=== PATIENT | female | born 1975 | race African-American/Black ===

== ENCOUNTER 2017-09-12 12:01 | Day surgery (SDC) | payer BC, OTHER ==
[~2017-09-12] VITALS: Ht 170.2 cm; Wt 99.8 kg
[~2017-09-12 12:01] MED LIST: BUPIVACAINE-EPI 0.25%-1:200000 MPF 30 ML VIAL. IJ ONE; DEXAMETHASONE SOD PHOS 20 MG/5 ML VIAL. ONE; ESTROGENS, CONJ VAGINAL CREAM 30GM TUBE. ONE; FAMOTIDINE 20 MG/2 ML VIAL ONE; LIDOCAINE 1%/EPI 1:100,000 20 ML VIAL. ONE; LIDOCAINE 2% PF Vial for OR 5 ML VIAL. ONE; ONDANSETRON PF 4 MG/2 ML VIAL. ONE; PROPOFOL 20 ML IV ONE; SURGICEL HEMOSTAT 4X8 EACH. ONE; fentaNYL PF VIAL 100 MCG/2 ML VIAL ONE
[2017-09-12] MEDS ORDERED: fentaNYL PF VIAL 100 MCG/2 ML VIAL IV PRN ×2 (12:30)
[2017-09-12] MEDS ORDERED: LIDOCAINE 1% PF 2 ML VIAL. ID PRN (12:30)
[2017-09-12] MEDS ORDERED: HYDROmorphone 2 MG/ML VIAL IV PRN (12:30)
[2017-09-12] MEDS ORDERED: ONDANSETRON PF 4 MG/2 ML VIAL. IV PRN (12:30)
[2017-09-12] MEDS ORDERED: MORPHINE SULFATE 2 MG/ML DISP.SYRIN. IV PRN (12:30)
[2017-09-12] MEDS ORDERED: PROCHLORPERAZINE 10 MG/2 ML VIAL. IV PRN (12:30)
[2017-09-12] MEDS ORDERED: MIDAZOLAM HCL/PF 2 MG/2 ML VIAL. ONE (12:48)
[2017-09-12] MEDS: IV RINGERS,LACTATED 1000ML 1,000 ML IV SCH ×2 (13:17→16:39)
[2017-09-12] MEDS ORDERED: ESMOLOL 100 MG/10 ML VIAL. IV ONE (13:30)
[2017-09-12] MEDS ORDERED: fentaNYL PF VIAL 100 MCG/2 ML VIAL ONE ×2 (13:36→14:40)
[2017-09-12] MEDS ORDERED: DESFLURANE 61 TO 120 MINUTES IH ONE (14:06)
[2017-09-12] MEDS ORDERED: ROCURONIUM 100 MG/10 ML VIAL. ONE (14:21)
[2017-09-12] MEDS ORDERED: KETOROLAC 30 MG/ML INJ FOR OR. INJ ONE (14:40)
[2017-09-12] MEDS ORDERED: NEOSTIGMINE METHYLSULFATE 5 MG/5 ML SYRINGE. ONE (14:40)
[2017-09-12] MEDS ORDERED: GLYCOPYRROLATE 1 MG/5 ML VIAL. ONE (14:40)
--- NOTE | 2017-09-12 15:04 | PDOC ---
BRIEF OPERATIVE NOTE Pre-Op Diagnosis Complex Ovarian cyst Post-Op Diagnosis Bilateral ovarian cysts with pelvic and abd wall adhesions Procedure Performed [facility] BSO Surgeon Dr. Monk Anesthesia Type: General Blood Loss 50 ml Specimens Obtained bilateral fallopian tubes and ovaries Findings bilateral ovarian cysts, nml fallopian tubes ramandeep., and pelvic and abd wall adhesions Complications none FERNANDO MONK Jr, MD Sep 12, 2017 15:04
--- NOTE | 2017-09-12 15:04 | DISCH ---
DISCHARGE INSTRUCTIONS Condition on Discharge Condition on Discharge: Stable Activity After Discharge Activity Instructions for Disc: Activity as tolerated Lifting Instructions after Dis: No heavy lifting Driving Instructions after Dis: Do not drive today Diet after Discharge Diet after Discharge: Regular Contacting the DRLissette after DC Call your doctor for: Concerns you may have Follow-Up Follow up with: Dr. Monk in 1 week. FERNANDO MONK Jr, MD Sep 12, 2017 15:04
--- NOTE | 2017-09-12 15:29 | OP ---
DATE OF SURGERY: 09/12/2017 PREOPERATIVE DIAGNOSIS: Complex ovarian cyst. POSTOPERATIVE DIAGNOSES: Bilateral ovarian cysts with pelvic and abdominal wall adhesions. PROCEDURE: Laparoscopic BSO. SURGEON: Reinaldo Monk MD. ANESTHESIA: GETA. ESTIMATED BLOOD LOSS: 50 mL. COMPLICATIONS: None. FINDINGS: Bilateral ovarian cysts. Normal fallopian tubes bilaterally. Pelvic and abdominal wall adhesions. SUMMARY: A 42-year-old female with pelvic pain, abdominal bloating, weight gain and complex ovarian cysts per CT and pelvic sonogram. The patient was counseled on laparoscopic BSO risks, benefits and expectations and voiced clear understanding to proceed. DESCRIPTION OF PROCEDURE: The patient was taken to surgery suite and placed in dorsal lithotomy position. She was prepped with Betadine for vaginal prep and ChloraPrep for abdominal prep. After adequate anesthesia, a moist sponge stick was placed vaginally. Attention was then placed on abdomen. Small transverse skin incision was made just below the umbilicus with a scalpel. The Veress needle was then placed through the infraumbilical incision site. The abdomen was allowed to insufflate up to 1.5 liters CO2 gas. The Veress needle was then removed, 5 mm trocar was placed. Scope was positioned. There were multiple abdominal wall adhesions, pelvic corbett adhesions as well. Initially, the left fallopian tube and ovary was seen with multiple cysts. The right fallopian tube and ovary was not seen at this time. Two additional incisions were made in the left lower quadrant, which an 11 mm trocar and a 5 mm trocar was placed. With the aid of graspers and EnSeal device, the left fallopian tube was dissected free of the left pelvic sidewall. The left infundibulopelvic ligament was coagulated and dissected. Further dissection, the right fallopian tube and ovary was then visualized. The left fallopian tube and ovary was then removed with the aid of an Endobag and sent for a fresh section evaluation by the pathologist, which revealed simple cyst. No evidence of malignancy. The same process took place with the right fallopian tube and ovary, which was dissected meticulously from the pelvic sidewall and bowel. The ureters were visualized and functioning properly. The appendix was normal in appearance. The right fallopian tube was also removed via the Endobag. The areas were hemostatic. This was verified with suction irrigation. A small amount of normal saline was left in the posterior cul-de-sac. The trocars were then removed under direct visualization. The abdomen was allowed to deflate as much as possible. The 11 mm trocar site was closed at the fascial layer using 2-0 Vicryl suture in a [id number] manner. The three skin incisions were closed in subcuticular manner using 4-0 Vicryl suture. 0.25% Marcaine with epinephrine was injected at each incision site. A moist sponge stick was then removed. The patient tolerated the procedure well and was taken to recovery room in stable condition. Sponge and needle count correct x 3. REINALDO MONK MD DR: RADHA/rae JOB#: [id number] / [id number]
[2017-09-12] MEDS ORDERED: oxyCODONE/APAP 5/325 1 TAB TABLET PO ONE (15:30)
[2017-09-12] MEDS ORDERED: OXYC-323 PO (15:32)
[2017-09-12] MEDS ORDERED: oxyCODONE/APAP 5/325 1 TAB TABLET PO PRN (15:45)
[2017-09-12 17:32] VITALS: BP 161/99
--- NOTE | 2017-09-16 15:04 | PATHOLOGY ---
PATHOLOGY REPORT * * * * * * * * FINAL DIAGNOSIS: A. Fallopian tube and ovary, left salpingo-oophorectomy: - Tubo-ovarian adhesions with mesothelial inclusion cyst - Cystic follicles and luteal cyst of ovary. B. Fallopian tube and ovary, right salpingo-oophorectomy: - Tubo-ovarian adhesions. - Paratubal cysts. - Several small cystic follicles of ovary. COMMENT: There is no evidence of malignancy. (JPM:mml; 09/16/2017) REPORT ELECTRONICALLY SIGNED BY: Lei Smith M.D. DATE/TIME: 09/16/2017 15:03 * * * * * * * * GROSS PATHOLOGY: A. The specimen is received fresh, labeled "Left tube and ovary". This consists of a short slightly torturous segment of fallopian tube with attached ovary. The fallopian tube measures approximately 3.5 cm in length and is up to 0.6 cm in width. The serosa is pink to dark purple and focally roughened. The attached pink martin ovary measures approximately 3.3 x 3.0 x 1.9 cm. One broad surface is relatively smooth. The opposite broad surface is roughened and has adhesions. The ovary is partially torn revealing a pink brown granular base. There appears to be a collapsed thin-walled cyst having a smooth lining between the ovary and fallopian tube. This measures 1.7 cm. The ovary is bivalved. The cut surface is pale pak to martin and edematous. There is a partial collapsed cyst within the ovary measuring up to 1.6 cm. There is a small yellow luteum measuring up to 0.9 cm. Sections are submitted as follows: A1- fallopian tube. A2- thin-walled paraovarian cyst. A3, A4- sections of ovary. (JPM:mml; 09/12/2017) B. The specimen is received fresh, labeled "Right tube and ovary". The specimen is received in two parts. The first consists of an elongate segment of pink red membranous tissue measuring up to 3.5 cm in length and 1.2 cm in width. There appears to be a thin-walled cyst embedded within the membranous tissue measuring up to 0.8 cm. The second segment consists of an irregular segment of pink martin to purple pak tissue which largely appears to consist of ovarian tissue. This segment measures up to 4.5 x 3.5 x 0.9 cm. There is focal brown black cautery change. One broad surface is relatively smooth and partially cerebriform and consistent with ovarian surface. The opposite broad surface is roughened and focally hemorrhagic. There are no distinct masses identified. Once again, there appears to be a small cystic segment of tissue adhered to one end of the ovary measuring up to 0.8 cm. No frozen section is performed. (JPM:pit; 09/12/2017) Sections are submitted as follows: B1- small segment of tissue containing small cyst and possible tubal fimbrae. B2-B4- sections of ovary and possible segment of fallopian tube. (JPM:mml; 09/12/2017) INTRAOPERATIVE CONSULTATION Gross Consultation: A. Fallopian tube and ovary, left salpingoopherectomy: -Benign cyst of ovary with adhesions and thin walled paraovarian cyst. The results are reported to Dr. Monk in the operating room. Gross consultation performed [place] [address] INITIAL CPT CODE(S): A; 10659, 66379 B; 69141 Professional services [place] [address] Technical services performed by [facility] at [address] [place] [address], [address], [place] [address]. SPECIMEN(S) RECEIVED: A.Left fallopian tube and ovary B.Right fallopian tube and ovary CLINICAL HISTORY: Ovarian cyst PATIENT: YUMIKO PAK /AGE: 201/06/1975 (Age: 42) PATIENT #: [id number] ALT CASE #: SPECIMEN COLLECTION DATE: 09/12/2017 SPECIMEN RECEIVED DATE: 09/12/2017 [facility] - [id number] [place] [address] - PHONE: [phone] * * * END OF REPORT * * *
== END 2017-09-12 17:54 | disposition home or self-care (01) ==
LOC: SURG 12:01
PROVIDERS: ATTEND Obstetrics & Gynecology
DX: N83.202 Unspecified ovarian cyst, left side (principal); N83.201 Unspecified ovarian cyst, right side; E07.9 Disorder of thyroid, unspecified; I10 Essential (primary) hypertension; J45.909 Unspecified asthma, uncomplicated; K21.9 Gastro-esophageal reflux disease without esophagitis; E11.9 Type 2 diabetes mellitus without complications; F32.9 Major depressive disorder, single episode, unspecified; F41.9 Anxiety disorder, unspecified; E66.9 Obesity, unspecified; Z91.048 Other nonmedicinal substance allergy status; Z98.51 Tubal ligation status; Z90.710 Acquired absence of both cervix and uterus; Z87.442 Personal history of urinary calculi; Z87.39 Personal history of other diseases of the musculoskeletal system and connective tissue; Z86.39 Personal history of other endocrine, nutritional and metabolic disease; Z91.040 Latex allergy status; Z68.34 Body mass index [BMI] 34.0-34.9, adult
CPT/HCPCS: 36415; 58661; 82962; 86850; 86900; 86901; A4215; C1782; J0690; J1100; J1885; J2250; J2270; J2405; J2704; J2710; J3010; J3490; J7030; J7120; S0028; J2001